=== PATIENT | female | born 1985 | race Caucasian/White ===

== ENCOUNTER 2017-06-26 02:49 | Inpatient (IN) | payer OTHER ==
[2017-06-26] MEDS ORDERED: Misoprostol 200 MCG TAB PR PRN (03:30)
[2017-06-26] MEDS ORDERED: Ibuprofen 800 MG TAB PO PRN (03:30)
[2017-06-26] MEDS ORDERED: Methylergonovine 0.2 MG/ML VIAL IM PRN ×2 (03:30→14:45)
[2017-06-26] MEDS ORDERED: LR / Pitocin 40 units/1000 ml 1,000 ML IV PRN (03:30)
[2017-06-26] MEDS: Lactated Ringer's 1,000 ML IV SCH ×2 (03:30→05:55)
[2017-06-26] MEDS ORDERED: HYDROcodone/Acetaminophen 5/325 mg Tablet PO PRN ×4 (03:30→14:45)
[2017-06-26] MEDS ORDERED: Promethazine HCl 25 MG/ML VIAL IM PRN ×2 (03:30→05:42)
[2017-06-26] MEDS ORDERED: Lidocaine 1% (PF) 30 ML VIAL SC PRN (03:30)
[2017-06-26] MEDS ORDERED: Ondansetron HCl/PF 4 MG/2 ML Vial IVP PRN ×2 (03:30→05:42)
[2017-06-26 03:40] VITALS: BMI 25.2
[2017-06-26 03:53] LABS: Hemoglobin 12.9 g/dL (12.0-16.0); Mean Corpuscular HGB CONC 34.9 g/dL (32.0-36.0); Mean Corpuscular Hemoglobin 29.7 pg (27.0-31.0); Mean Platelet Volume 7.7 fL (7.4-10.4); Platelet Count 216 thou/uL (130-400); RBC Distribution Width 11.3 % (11.5-14.5); Red Blood Cell (RBC) Count 4.35 mill/uL (4.20-5.40); White Blood Cell (WBC) Count 9.8 thou/uL (4.8-10.8)
[2017-06-26] MEDS ORDERED: DISCONTINUE ALL PREVIOUS NARCOTICS FS SCH (04:30)
[2017-06-26] MEDS ORDERED: Bupivacaine 0.5% 20 ML, Fentanyl 400 MCG in Sodium Chloride 0.9% 72 ML EPIDURAL SCH (04:30)
[2017-06-26 05:22] LABS: HBSAg Index 0.87 S/CO (0-0.99); Hep B Surf Ag Non-Reactive S/CO (NonReactive)
[2017-06-26 05:33] LABS: Syphilis Antibody Nonreactive (Nonreactive); Syphilis Antibody Index 0.03 S/CO (<1.00 Non-Reactive)
[2017-06-26] MEDS ORDERED: Eucerin (Mineral Oil/Petrolatum,White) 30 gm Jar TOP PRN (05:42)
[2017-06-26] MEDS ORDERED: ePHEDrine/0.9% NaCl/PF SYRINGE 50 mg/10 ml SLOW IVP PRN (05:42)
[2017-06-26] MEDS ORDERED: Naloxone HCl 0.4 mg/ml Vial IVP PRN ×2 (05:42)
[2017-06-26] MEDS ORDERED: diphenhydrAMINE 50 MG/ML VIAL IVP PRN (05:42)
[2017-06-26] MEDS ORDERED: Lactated Ringer's 500 ML IV PRN (05:42)
[2017-06-26] MEDS ORDERED: Acetaminophen 325 MG TAB PO PRN (05:42)
[2017-06-26] MEDS ORDERED: Fentanyl 4mcg/Marcaine 0.1% Cassette 100 ML EPIDURAL SCH (05:45)
[2017-06-26] MEDS ORDERED: Communication Order-Pharmacy FS SCH (05:45)
[2017-06-26] MEDS ORDERED: LR 500 ML/Oxytocin 10 units 500 ML IV SCH (07:45)
--- NOTE | 2017-06-26 09:20 | PDOC.LDHP ---
Labor and Delivery H&P Chief complaint: contractions HPI: Reema Aponte is a 31 y.o at [id number]. she states she has been dayana since midnight. the baby has been moving normally. Denies LOF and VB. Current gestational age (weeks): 37 Grav: 4 Para: 1 OB History Details: G#1: SAB 8w G2: 04/2012 AB elective G3: 05/04/11 7lb 5 w at 37+ weeks G4: current Current complications: none Abnormal US findings: No Past Medical History: none Current medications: pre- vitamins Previous surgical history: none Allergies/Adverse Reactions: Allergies Allergy/AdvReac Type Severity Reaction Status Date / Time No Known Allergies Allergy Verified 06/26/17 03:45 Social history: none - Physical Exam Vital signs reviewed and normal: yes General: resting (with epidural pain management) Heart: RRR Lungs: nonlabored breathing Abdomen: gravid Extremeties: no edema FHT: category 1 (Category 2 on admission resovled to Category 1 with FHT 130, moderate variability, + Accels. no decels.) [place] contractions every: q2min - Vaginal Exam cm dilated: 6 Effacement: 100% Station: 0 - OB Labs Blood type: B RH: positive Antibody Screen: negative HIV: negative RPR: negative HEPSAg: negative 1 hour GCT: negative GBS: negative Urine drug screen: not done Rubella: immune - Assessment L&D Assessment: term patient in labor - Plan Plan: admit to L&D
--- NOTE | 2017-06-26 11:50 | PDOC.OPDEL ---
OB Operative/Delivery Note Delivery Dr/Surgeon: Dana torre CNM Pre-Delivery Diagnosis: active labor Procedure/Post Delivery Dx: spontaneous vaginal delivery Weeks gestation: 37 Anesthesia: epidural - Findings A Sex: male - 1 min: 9 - 5 min: 10 - Additional Findings/Plan Placenta delivered: spontaneous Repaired Obstetrical Laceration: 1st degree (repaired) Estimated blood loss: 200 Compilations/Other Findings: polyhydramnios - 1500mL AFTER AROM of approximately 1000mL. 2500mL total. Post delivery plan: routine recovery
[2017-06-26] MEDS ORDERED: Milk Of Magnesia 30 ML UDCUP PO PRN (14:45)
[2017-06-26] MEDS ORDERED: Preparation H Ointment 28 GM TUBE PR PRN (14:45)
[2017-06-26] MEDS ORDERED: Benzocaine/Menthol 20-0.5% 60 ML CAN TOP PRN (14:45)
[2017-06-26] MEDS ORDERED: Bisacodyl 10 MG SUPP PR PRN (14:45)
[2017-06-26] MEDS ORDERED: LR / Pitocin 40 units/1000 ml 1,000 ML IV SCH (14:45)
[2017-06-26] MEDS ORDERED: Misoprostol 200 MCG TAB VAG SCH (14:45)
[2017-06-26] MEDS ORDERED: Lanolin Ointment 7 GM TUBE TOP PRN (14:45)
[2017-06-26] MEDS: Ibuprofen 800 MG TAB PO SCH (16:34)
[2017-06-26] MEDS: Ferrous Sulfate 325 MG TAB PO SCH (17:05)
[2017-06-26] MEDS: Docusate Calcium (SURFAK) 240 MG CAP PO SCH (23:45)
[2017-06-26] MEDS ORDERED: Ibuprofen 800 MG TAB PO SCH (23:45)
--- NOTE | 2017-06-27 06:08 | PDOC.EVN ---
Event Note - Event Note Event Note: DISCHARGE NOTE Admission: 06/26/17 Discharge:: 06/27/17 patient doing well on PPD 1, s/p . patient seen at bedside s. no complaints, resting O. VSS afebrile predelivery HCT 37 Physical: NAD ut firm, nt no VB Assessment/Plan: PPD1- stable for discharge early this PM. F/U with Light in 4-6 weeks
[2017-06-27] MEDS: Ibuprofen 800 MG TAB PO SCH ×2 (06:24→13:27)
[2017-06-27] MEDS: Ferrous Sulfate 325 MG TAB PO SCH (07:32)
[2017-06-27 08:53] VITALS: BP 89/56; TEMP 98.4
[2017-06-27] MEDS ORDERED: Prenatal Vitamin 1 TAB PO SCH (09:00)
[2017-06-27] MEDS ORDERED: Varicella virus, LIVE 0.5 ML VIAL SC ONE (09:00)
[2017-06-27] MEDS ORDERED: Adacel (T-DAP) 0.5 ML VIAL IM ONE (09:00)
[2017-06-27] MEDS: Docusate Calcium (SURFAK) 240 MG CAP PO SCH (09:39)
[2017-06-27] MEDS ORDERED: Bupivacaine 0.25% 10 ML VIAL ONE (11:11)
== END 2017-06-27 15:50 | disposition home or self-care (01) | DRG 775 ==
LOC: L&D/OP 02:49 → L&D 03:48 → 3SW 14:00
PROVIDERS: ADMIT Student in an Organized Health Care Education/Training Program; ATTEND Student in an Organized Health Care Education/Training Program
PROC: 10E0XZZ Delivery of Products of Conception, External Approach (ICD-10-PCS; principal; 2017-06-26)
PROC: 10907ZC Drainage of Amniotic Fluid, Therapeutic from Products of Conception, Via Natural or Artificial Opening (ICD-10-PCS; 2017-06-26)
PROC: 0HQ9XZZ Repair Perineum Skin, External Approach (ICD-10-PCS; 2017-06-26)
PROC: 3E0234Z Introduction of Serum, Toxoid and Vaccine into Muscle, Percutaneous Approach (ICD-10-PCS; 2017-06-26)
DX: O70.0 First degree perineal laceration during delivery (principal); Z23 Encounter for immunization; Z37.0 Single live birth; Z3A.37 37 weeks gestation of pregnancy
CPT/HCPCS: 36415; 51702; 85027; 86780; 87340; 90715; 99285; J2001; J3010; J3490; J7050; J7120; S0020

== ENCOUNTER 2017-07-01 10:21 | Emergency (ER) | payer OTHER ==
[2017-07-01 11:06] LABS: #Eosinphils 0.1 thou/uL (0.0-0.7); #Lymphocytes 1.9 thou/uL (1.20-3.40); #Monocytes 0.8 thou/uL (0.11-0.59); #Neutrophils 6.7 thou/uL (1.40-6.50); %Basophils 0.1 % (0.0-1.0); %Eosinophils 0.7 % (0.0-10.0); %Lymphocytes 20.3 % (21.0-51.0); %Monocytes 8.3 % (0.0-10.0); %Neutrophils 70.5 % (42.0-75.0); Hemoglobin 13.3 g/dL (12.0-16.0); Mean Corpuscular HGB CONC 33.7 g/dL (32.0-36.0); Mean Corpuscular Hemoglobin 28.6 pg (27.0-31.0); Mean Corpuscular Volume 84.9 fl (81.0-99.0); Mean Platelet Volume 7.2 fL (7.4-10.4); Platelet Count 319 thou/uL (130-400); RBC Distribution Width 11.5 % (11.5-14.5); Red Blood Cell (RBC) Count 4.64 mill/uL (4.20-5.40); White Blood Cell (WBC) Count 9.5 thou/uL (4.8-10.8)
[2017-07-01 11:14] LABS: Bilirubin Negative (Negative); Blood, Urine Negative (Negative); Glucose, Urine (Dipstick) Negative (Negative); Leukocyte Negative (Negative); Nitrite Negative (Negative); Protein, Urine (Dipstick) Negative (Neg-Trace); Urobilinogen 0.2 mg/dL (0.2-1.0)
[2017-07-01 11:17] LABS: Clarity Clear (Clear)
[2017-07-01] MEDS ORDERED: Ondansetron HCl/PF 4 MG/2 ML Vial ONE (11:18)
[2017-07-01 11:27] LABS: ALT (SGPT) 24 U/L (8-55); AST (SGOT) 16 U/L (5-34); Albumin 3.5 g/dL (3.5-5.0); Alkaline Phosphatase 165 U/L (40-150); Anion Gap 12 mmol/L (10-20); BUN (Urea Nitrogen) 9 mg/dL (7.0-18.7); Bilirubin, Total 0.3 mg/dL (0.2-1.2); Calc. Creatinine Clearance 0 mL/min (70-130); Calcium 9.4 mg/dL (7.8-10.44); Carbon Dioxide 25 mmol/L (22-29); Chloride 102 mmol/L (98-107); Estimated GFR-MDRD Greater than 90; Globulin 3.5 g/dL (2.4-3.5); Glucose 97 mg/dL (70-105); Lipase 33 U/L (8-78); Potassium 3.7 mmol/L (3.5-5.1); Sodium 135 mmol/L (136-145)
== END 2017-07-01 13:01 | disposition home or self-care (01) ==
LOC: ERS 10:21
DX: O99.89 Other specified diseases and conditions complicating pregnancy, childbirth and the puerperium (principal); R11.2 Nausea with vomiting, unspecified
CPT/HCPCS: 80053; 81003; 83690; 85025; A4353; J2405

== ENCOUNTER 2017-07-01 22:01 | Observation (INO) | payer OTHER ==
[2017-07-01] MEDS ORDERED: Promethazine HCl 25 MG/ML VIAL ONE (22:49)
[2017-07-01 23:09] LABS: #Eosinphils 0.1 thou/uL (0.0-0.7); #Lymphocytes 1.7 thou/uL (1.20-3.40); #Monocytes 0.6 thou/uL (0.11-0.59); #Neutrophils 7.7 thou/uL (1.40-6.50); %Basophils 0.2 % (0.0-1.0); %Eosinophils 0.6 % (0.0-10.0); %Lymphocytes 17.1 % (21.0-51.0); %Monocytes 5.8 % (0.0-10.0); %Neutrophils 76.3 % (42.0-75.0); Hemoglobin 14.8 g/dL (12.0-16.0); Mean Corpuscular HGB CONC 34.1 g/dL (32.0-36.0); Mean Corpuscular Hemoglobin 29.2 pg (27.0-31.0); Mean Corpuscular Volume 85.6 fl (81.0-99.0); Mean Platelet Volume 7.1 fL (7.4-10.4); Platelet Count 344 thou/uL (130-400); RBC Distribution Width 11.4 % (11.5-14.5); Red Blood Cell (RBC) Count 5.08 mill/uL (4.20-5.40); White Blood Cell (WBC) Count 10.1 thou/uL (4.8-10.8)
--- NOTE | 2017-07-01 23:22 | RAD ---
ABDOMEN TWO VIEW WITH ONE VIEW CHEST X-RAY 07/01/17 HISTORY: Vomiting, . COMPARISON: None. FINDINGS: Lungs are clear. No pneumothorax or effusion. The cardiac silhouette and mediastinal contours are wit hin normal limits. No dilated air filled loops of large or small bowel. No free air under the hemidiaphragms. There is a soft tissue density projecting in the pelvis likely a gravid uterus. IMPRESSION: No acute abnormality. POS: [facility]
[2017-07-01 23:27] LABS: Anion Gap 15 mmol/L (10-20); BUN (Urea Nitrogen) 9 mg/dL (7.0-18.7); Calc. Creatinine Clearance 0 mL/min (70-130); Calcium 9.5 mg/dL (7.8-10.44); Carbon Dioxide 25 mmol/L (22-29); Chloride 102 mmol/L (98-107); Estimated GFR-MDRD Greater than 90; Glucose 88 mg/dL (70-105); Potassium 3.7 mmol/L (3.5-5.1); Sodium 138 mmol/L (136-145)
[2017-07-01] MEDS ORDERED: Bisacodyl 10 MG SUPP ONE (23:38)
[2017-07-02] MEDS ORDERED: Metoclopramide HCl 10 MG/2 ML VIAL IVP PRN (02:13)
[2017-07-02] MEDS ORDERED: Acetaminophen 500 MG TAB PO PRN (02:13)
[2017-07-02] MEDS: Dextrose 5%-Lactated Ringers 1,000 ML IV SCH ×2 (02:55→12:19)
[2017-07-02 03:32] VITALS: BMI 20.5
[2017-07-02] MEDS: Simethicone Chewable 80 MG TAB PO SCH ×2 (05:49→15:48)
--- NOTE | 2017-07-02 06:36 | PDOC.EVN ---
Event Note - Event Note Event Note: @0630: patient seen at bedside. Feels better S. Had BM after arrival to floor. No fever. 0. VSSafebrile NAD Abdomen soft and NT Normo-tympany to percussion No abd distension A/P: Possibly hypoactive bowel , unclear etiology. Doing well know. Regular diet this AM and likely home at noon. Continue IV reglan un til then
--- NOTE | 2017-07-02 06:40 | PDOC.EVN ---
Event Note - Event Note Event Note: DISCHARGE NOTE DX: hypodynamic bowel patient was kept overnight for observation due to 2 ED visits for same complaint. She was admitted to as a 5 days patient s/p with inability to pass gas and have BM. In ED, 3 view KUB was without ileus. We admitted her for IV reglan and po simethicone for GI stuimulation. She received a dulcolax supp l in ED with resulting BM and she felt better on the AM of 07/02/17. We administered regular diet the AM of 07/02/17 with plans for noon discharge is continued to tolerate diet well.
[2017-07-02] MEDS ORDERED: Ondansetron HCl/PF 4 MG/2 ML Vial IVP PRN (09:37)
[2017-07-02] MEDS ORDERED: Metoclopramide HCl 10 MG/2 ML VIAL IVP SCH (12:00)
[2017-07-02 12:47] VITALS: BP 137/80; TEMP 99.4
--- NOTE | 2017-07-03 00:30 | DIS ---
DATE OF ADMISSION: 07/01/2017 DATE OF DISCHARGE: 07/02/2017 ADMITTING DIAGNOSIS: Nausea and vomiting, . DISCHARGE DIAGNOSIS: Nausea and vomiting, . CONSULTATIONS: None. PROCEDURE: None. HOSPITAL COURSE: The patient is a 31-year-old female who was admitted 6 days for nausea a nd vomiting. She had a workup for ileus and found no evidence on an acute abdominal series. She was given a suppository to assist with a bowel movement which has helped her feel better in part through the day she has continued to have some nausea with some vomiting. Once her Reglan and Zofran were s cheduled the patient by evening time, was feeling better and tolerating some p.o. and has asked to go home. Lab work has been within normal limits. No elevated white count. Urinalysis was negative fo r blood or infection. Vital signs at the time of discharge, blood pressure 137/80, temperature 99.4, pulse of 69, respiratory rate of 18. In general, she appears to be much better than time of my init ial evaluation this morning. She has a smile and appears more calm and with more energy. The sarkis posadas is being discharged to home. She has Zofran at the house, which she can continue to use as needed. We are adding Reglan for her to take 10 mg 30 minutes before meals for the next few days. The cinthia brewer has been asked to follow up with her primary OB in the next 7 days and has been given instruction s to return should she experience fever, increasing symptoms or pain.
== END 2017-07-02 17:48 | disposition home or self-care (01) ==
LOC: ERS 22:01 → 3SW 07-02 02:02
PROVIDERS: ADMIT Obstetrics & Gynecology; ATTEND Obstetrics & Gynecology
DX: O21.9 Vomiting of pregnancy, unspecified (principal); O99.89 Other specified diseases and conditions complicating pregnancy, childbirth and the puerperium; K92.89 Other specified diseases of the digestive system
CPT/HCPCS: 51701; 74022; 80053; 81003; 83690; 85025; 96361; 96365; 96366; 96374; 96375; 96376; A4353; G0378; J2405; J2550; J2765

== ENCOUNTER 2018-09-07 14:45 | Outpatient (CLI) | payer OTHER ==
--- NOTE | 2018-09-07 16:00 | ULT ---
LIMITED SOFT TISSUE ULTRASOUND: 09/07/18 PROVIDED CLINICAL HISTORY: Neck mass. FINDINGS: Limited sonographic interrogation of the neck was performed in the region of the palpable concern. Th e palpable abnormality corresponds to an approximately 1 cm circumscribed hypoechoic nodule arising f rom the isthmus of the thyroid gland slightly right of midline. This demonstrates a solid composition , wider than tall shape, smooth margins and no echogenic foci. IMPRESSION: Palpable abnormality corresponds to a TI-RADS level 4 - moderately suspicious thyroid isthmus nodule. Sonographic follow-up is recommended. POS: OFF
== END 2018-09-07 14:46 | disposition home or self-care (01) ==
LOC: BICULT 14:45
PROVIDERS: ATTEND Family Medicine
DX: R22.1 Localized swelling, mass and lump, neck (principal)
CPT/HCPCS: 76536